=== PATIENT | female | born 1985 | race Caucasian/White ===

== ENCOUNTER 2017-04-29 08:47 | Inpatient (IN) | payer OTHER ==
[~2017-04-29] VITALS: Ht 172.7 cm; Wt 99.1 kg
[~2017-04-29 08:47] MED LIST: FERR325T18 PO; IBUP-1222 PO; OXYC-302 PO
[2017-05-01] MEDS: AMPICILLIN 2 GM in SODIUM CHLORIDE 0.9% 100 ML IVPB STA ×2 (06:02→07:00)
[2017-05-01] MEDS ORDERED: OXYTOCIN 30U/ 0.9% NaCL 500ML 500 ML IV PRN (06:02)
[2017-05-01] MEDS ORDERED: OXYTOCIN 30U/ 0.9% NaCL 500ML 500 ML IV ONE (06:02)
[2017-05-01] MEDS ORDERED: OXYTOCIN 30U/ 0.9% NaCL 500ML 500 ML ONE ×2 (06:24→12:41)
[2017-05-01 06:27] VITALS: BP 137/88
[2017-05-01] MEDS ORDERED: FENTANYL PF 100 MCG/2ML IV PRN (06:30)
[2017-05-01] MEDS ORDERED: TERBUTALINE 1 MG/ML, 1ML IVPush PRN (06:30)
[2017-05-01] MEDS ORDERED: ONDANSETRON 2MG/ML, 2ML IVPush PRN (06:30)
[2017-05-01] MEDS ORDERED: FENTANYL PF 100 MCG/2ML IVPush PRN (06:30)
[2017-05-01] MEDS ORDERED: ALUMINUM/MAG/SIMETHICONE 30 ML UDC PO PRN (06:30)
[2017-05-01] MEDS: LACTATED RINGERS 1,000 ML IV SCH ×2 (06:52→10:37)
[2017-05-01 06:59] LABS: HEMATOCRIT 38.4 % (34.6-47.8)
[2017-05-01] MEDS ORDERED: PREN-3 PO (07:01)
[2017-05-01] MEDS ORDERED: NEWBORN KIT ONE (07:21)
[2017-05-01] MEDS: AMPICILLIN 1 GM in SODIUM CHLORIDE 0.9% 50 ML IVPB SCH ×2 (10:30→11:15)
[2017-05-01] MEDS ORDERED: FENTANYL/BUPIV./NS/PF 250 ML EPIDCONT ONE ×2 (10:46→10:48)
[2017-05-01] MEDS ORDERED: LIDOCAINE/MPF 2%-EPI 1:200K, 20 ML ONE (10:47)
[2017-05-01] MEDS ORDERED: LIDOCAINE 1%, 20ML ONE (10:48)
[2017-05-01] MEDS ORDERED: LIDOCAINE/PF 1.5%-EPI 1:200K, 30ML ONE (10:48)
[2017-05-01] MEDS ORDERED: MISOPROSTOL 200 MCG TABLET ONE (11:56)
[2017-05-01] MEDS ORDERED: FENTANYL PF 100 MCG/2ML ONE (12:05)
[2017-05-01] MEDS ORDERED: MISOPROSTOL 200 MCG TABLET PR ONE (12:30)
[2017-05-01] MEDS: OXYTOCIN 30U/ 0.9% NaCL 500ML 500 ML IV SCH ×2 (12:31→22:31)
[2017-05-01] MEDS ORDERED: HYDROcodone/APAP 5/325 TABLET PO PRN (13:00)
[2017-05-01] MEDS ORDERED: METHYLERGONOVINE 0.2 MG/ML IM PRN (13:00)
[2017-05-01] MEDS ORDERED: OXYTOCIN 10 UNITS/ML, 1ML IM PRN (13:00)
[2017-05-01] MEDS ORDERED: ONDANSETRON 2MG/ML, 2ML IV PRN (13:00)
[2017-05-01] MEDS ORDERED: CARBOPROST TROMETHAMINE 250 MCG/ML, 1ML IM PRN (13:00)
[2017-05-01] MEDS ORDERED: ACETAMINOPHEN 325 MG TABLET PO PRN ×2 (13:00)
[2017-05-01] MEDS ORDERED: MISOPROSTOL 200 MCG TABLET PR PRN (13:00)
[2017-05-01] MEDS: CEFAZOLIN PMX 2GM/50ML 50 ML IVPB SCH ×2 (13:26→21:28)
[2017-05-01 14:05] VITALS: BP 116/72
[2017-05-01] MEDS: IBUPROFEN 600 MG TABLET PO PRN (16:43)
[2017-05-01] MEDS ORDERED: FENTANYL/BUPIV./NS/PF 250 ML EPIDCONT SCH (18:08)
[2017-05-01] MEDS ORDERED: LACTATED RINGERS 1,000 ML IV SCH (18:08)
[2017-05-01 18:09] VITALS: BP 119/76
[2017-05-01] MEDS ORDERED: LACTATED RINGERS 1,000 ML IVBOLUS PRN (18:30)
[2017-05-01] MEDS ORDERED: EPHEDRINE 50 MG/ML, 1ML IVPush PRN (18:30)
[2017-05-01] MEDS ORDERED: NALOXONE 0.4 MG/ML, 1ML IVPush PRN (18:30)
[2017-05-01 20:01] LABS: DIFF TOTAL CELLS COUNTED 100 CELL DIFF; HEMATOCRIT 35.9 % (34.6-47.8); HEMOGLOBIN 12.1 g/dL (11.7-16.4)
[2017-05-01 20:45] LABS: VERIFY COUNTS? YES
[2017-05-01 21:00] VITALS: BP 122/80
[2017-05-02 01:15] VITALS: BP 118/69
[2017-05-02] MEDS: CEFAZOLIN PMX 2GM/50ML 50 ML IVPB SCH ×2 (05:44→13:22)
[2017-05-02] MEDS ORDERED: MEASLES,MUMPS&RUBELLA VACC/PF 0.5 ML SQ-VACC ONE (06:00)
[2017-05-02] MEDS ORDERED: PRENATAL VIT/IRON/FA 1 EACH TABLET ONE (07:40)
[2017-05-02] MEDS: DOCUSATE 100 MG CAPSULE PO PRN (07:48)
[2017-05-02] MEDS: PRENATAL VIT/IRON/FA 1 EACH TABLET PO SCH (07:48)
[2017-05-02 08:00] VITALS: BP 122/79
[2017-05-02] MEDS: OXYTOCIN 30U/ 0.9% NaCL 500ML 500 ML IV SCH (08:31)
[2017-05-02 19:35] VITALS: BP 130/71
[2017-05-02] MEDS: IBUPROFEN 600 MG TABLET PO PRN (19:48)
[2017-05-03] MEDS: IBUPROFEN 600 MG TABLET PO PRN (05:37)
[2017-05-03] MEDS: PRENATAL VIT/IRON/FA 1 EACH TABLET PO SCH (09:00)
[2017-05-03] MEDS: DOCUSATE 100 MG CAPSULE PO PRN (09:00)
[2017-05-03] MEDS ORDERED: OXYC-302 PO (09:27)
[2017-05-03] MEDS ORDERED: IBUP-1222 PO (09:27)
== END 2017-05-03 10:57 | disposition home or self-care (01) | DRG 767 ==
LOC: LDIP 05-01 05:58 → 2NW 05-01 13:58
PROVIDERS: ADMIT Obstetrics & Gynecology; ATTEND Obstetrics & Gynecology
PROC: 10E0XZZ Delivery of Products of Conception, External Approach (ICD-10-PCS; principal; 2017-05-01)
PROC: 0KQM0ZZ Repair Perineum Muscle, Open Approach (ICD-10-PCS; 2017-05-01)
PROC: 10907ZC Drainage of Amniotic Fluid, Therapeutic from Products of Conception, Via Natural or Artificial Opening (ICD-10-PCS; 2017-05-01)
PROC: 3E0R3BZ Introduction of Anesthetic Agent into Spinal Canal, Percutaneous Approach (ICD-10-PCS; 2017-05-01)
PROC: 00HU33Z Insertion of Infusion Device into Spinal Canal, Percutaneous Approach (ICD-10-PCS; 2017-05-01)
PROC: 10D17Z9 Manual Extraction of Products of Conception, Retained, Via Natural or Artificial Opening (ICD-10-PCS; 2017-05-01)
PROC: 10E0XZZ Delivery of Products of Conception, External Approach (ICD-10-PCS; 2017-05-01)
DX: O99.824 Streptococcus B carrier state complicating childbirth (principal); F41.9 Anxiety disorder, unspecified; O99.344 Other mental disorders complicating childbirth; J45.909 Unspecified asthma, uncomplicated; O99.52 Diseases of the respiratory system complicating childbirth; O70.1 Second degree perineal laceration during delivery; Z37.0 Single live birth; Z3A.40 40 weeks gestation of pregnancy; Z87.820 Personal history of traumatic brain injury; Z23 Encounter for immunization; O73.0 Retained placenta without hemorrhage
CPT/HCPCS: 36415; 82803; 85025; 86592; 86850; 86900; 88305; J0290; J0690; J3010; J3490; J2590; J7120

== ENCOUNTER 2017-12-23 13:08 | Inpatient (IN) | payer OTHER ==
[~2017-12-23] VITALS: Ht 172.7 cm; Wt 89.4 kg
[~2017-12-23 13:08] MED LIST changes: +PREN-3 PO
[2017-12-23] MEDS ORDERED: ASPIRIN 325 MG TABLET PO STA (13:22)
[2017-12-23] MEDS ORDERED: SODIUM CHLORIDE FLUSH 10ML SYR IVF ONE (13:30)
[2017-12-23 13:34] LABS: BASOPHILS # (AUTO) 0.05 x10^3/uL (0-0.1); BASOPHILS % (AUTO) 0 % (0-1); EOSINOPHILS # (AUTO) 0.12 x10^3/uL (0-0.4); EOSINOPHILS % (AUTO) 1 % (1-7); LYMPHOCYTES # (AUTO) 2.34 x10^3/uL (1-3.4); LYMPHOCYTES % (AUTO) 17 % (22-44); MD NO; MEAN CORPUSCULAR HEMOGLOBIN 29.8 pg (27.0-34.8); MEAN CORPUSCULAR HGB CONC 34.4 g/dL (32.4-35.8); MEAN CORPUSCULAR VOLUME 86.5 fL (80-100); MEAN PLATELET VOLUME 9.8 fL (7.4-10.4); MONOCYTES # (AUTO) 0.72 x10^3/uL (0.2-0.8); MONOCYTES % (AUTO) 5 % (2-9); NEUTROPHILS # (AUTO) 10.89 x10^3/uL (1.8-6.8); NEUTROPHILS % (AUTO) 77 % (42-75); PLATELET COUNT 283 x10^3/uL (130-400); RED BLOOD COUNT 5.08 x10^6/uL (3.82-5.3); RED CELL DISTRIBUTION WIDTH 14.1 % (9.6-15.2)
[2017-12-23] MEDS ORDERED: LORazepam 2 MG/ML, 1ML ONE (13:40)
[2017-12-23 13:49] LABS: INTERNATIONAL NORMALIZED RATIO 0.98 (0.93-1.1); PROTHROMBIN TIME 10.2 Seconds (9.6-11.5)
[2017-12-23] MEDS ORDERED: NITROGLYCERIN 5 MG/ML, 10ML ONE (13:50)
[2017-12-23] MEDS ORDERED: TICAGRELOR 90 MG TABLET ONE (13:50)
[2017-12-23] MEDS ORDERED: FENTANYL PF 100 MCG/2ML ONE ×2 (13:50→15:28)
[2017-12-23] MEDS ORDERED: MIDAZOLAM 1 MG/ML, 5ML ONE (13:50)
[2017-12-23] MEDS ORDERED: VERAPAMIL 2.5 MG/ML, 2ML ONE ×2 (13:50→14:23)
[2017-12-23 13:51] LABS: TROPONIN I 0.022 ng/mL (0.000-0.045)
[2017-12-23] MEDS ORDERED: BIVALIRUDIN 250 MG ONE ×2 (13:51→15:31)
[2017-12-23] MEDS ORDERED: HEPARIN 1,000 UNITS/ML, 10ML ONE (13:51)
[2017-12-23] MEDS ORDERED: LIDOCAINE/PF 1%, 30ML ONE (13:51)
[2017-12-23] MEDS ORDERED: ASPIRIN 81 MG TABLET CHEW ONE (13:55)
[2017-12-23] MEDS ORDERED: LORazepam 2 MG/ML, 1ML IVPush ONE (14:00)
[2017-12-23] MEDS ORDERED: NITROGLYCERIN SINGLE TAB 0.4 MG SL PRN (14:00)
[2017-12-23 14:22] LABS: HCT (SEDRATE) 43.9 % (34.6-47.8)
[2017-12-23] MEDS ORDERED: ACETAMINOPHEN 325 MG TABLET PO PRN (15:00)
[2017-12-23] MEDS ORDERED: SODIUM CHLORIDE 0.9% 1,000 ML IV SCH (15:00)
[2017-12-23] MEDS ORDERED: ONDANSETRON 2MG/ML, 2ML IVPush PRN (15:00)
[2017-12-23] MEDS ORDERED: ZOLPIDEM 5MG TABLET PO PRN (15:00)
[2017-12-23] MEDS ORDERED: ENOXAPARIN 40 MG/0.4 ML SQ SCH (15:00)
[2017-12-23] MEDS ORDERED: BISACODYL 5 MG EC TABLET PO PRN ×2 (15:00→18:30)
[2017-12-23] MEDS ORDERED: BISACODYL 10 MG SUPP PR PRN ×2 (15:00→18:30)
[2017-12-23] MEDS ORDERED: NITROGLYCERIN 0.4 MG/SPRAY SL PRN (15:00)
[2017-12-23] MEDS ORDERED: ADENOSINE 6 MG/2 ML ONE (15:25)
[2017-12-23] MEDS ORDERED: MIDAZOLAM 1 MG/ML, 2ML ONE (15:28)
[2017-12-23] MEDS ORDERED: EPTIFIBATIDE 20 MG/10 ML ONE ×2 (15:36→16:52)
[2017-12-23] MEDS ORDERED: EPTIFIBATIDE 100 ML IV ONE (16:47)
[2017-12-23] MEDS ORDERED: EPTIFIBATIDE IVPush ONE (17:30)
[2017-12-23] MEDS: EPTIFIBATIDE 100 ML IV PRN ×2 (17:35→22:15)
[2017-12-23] MEDS ORDERED: EPTIFIBATIDE 100 ML IV PRN (18:15)
[2017-12-23] MEDS: ACETAMINOPHEN 325 MG TABLET PO PRN (18:22)
[2017-12-23] MEDS: SODIUM CHLORIDE 0.9% 1,000 ML IV SCH ×2 (18:29→18:30)
[2017-12-23] MEDS ORDERED: ONDANSETRON 2MG/ML, 2ML IV PRN (18:30)
[2017-12-23] MEDS ORDERED: KETOROLAC 30 MG/1 ML IVPush ONE (20:30)
[2017-12-23] MEDS ORDERED: MAGNESIUM SULFATE PMX 2GM/50ML 50 ML IV ONE (20:30)
[2017-12-23] MEDS: ATORVASTATIN 80 MG TABLET PO SCH (20:40)
[2017-12-23] MEDS: METOPROLOL TARTRATE 25 MG TABLET PO SCH (20:40)
[2017-12-23] MEDS ORDERED: TICAGRELOR 90 MG TABLET PO SCH (21:00)
[2017-12-23] MEDS ORDERED: METOPROLOL TARTRATE 25 MG TABLET PO SCH (21:00)
[2017-12-23 21:05] LABS: ANION GAP 11 mmol/L (5-15); CALCIUM 8.7 mg/dL (8.5-10.1); CHLORIDE 105 mmol/L (98-107); CREATININE 0.71 mg/dL (0.55-1.02)
[2017-12-23] MEDS: NITROGLYCERIN 0.4 MG BOTTLE (25 TABS) SL PRN (21:29)
[2017-12-23] MEDS ORDERED: POTASSIUM CHLORIDE 20 MEQ TAB.ER.PRT PO ONE (22:00)
[2017-12-23] MEDS ORDERED: NITROGLYCERIN/D5W PMX 250 ML IV PRN (22:30)
[2017-12-24] MEDS: METOPROLOL TARTRATE 25 MG TABLET PO SCH ×4 (02:48→20:50)
[2017-12-24] MEDS: NITROGLYCERIN 0.4 MG BOTTLE (25 TABS) SL PRN ×2 (05:23→06:45)
[2017-12-24 05:38] LABS: BASOPHILS # (AUTO) 0.03 x10^3/uL (0-0.1); BASOPHILS % (AUTO) 0 % (0-1); EOSINOPHILS # (AUTO) 0.01 x10^3/uL (0-0.4); EOSINOPHILS % (AUTO) 0 % (1-7); LYMPHOCYTES % (AUTO) 10 % (22-44); MD NO; MEAN CORPUSCULAR HEMOGLOBIN 29.4 pg (27.0-34.8); MEAN CORPUSCULAR HGB CONC 33.6 g/dL (32.4-35.8); MEAN CORPUSCULAR VOLUME 87.6 fL (80-100); MEAN PLATELET VOLUME 10.7 fL (7.4-10.4); MONOCYTES # (AUTO) 0.84 x10^3/uL (0.2-0.8); MONOCYTES % (AUTO) 7 % (2-9); NEUTROPHILS # (AUTO) 10.28 x10^3/uL (1.8-6.8); NEUTROPHILS % (AUTO) 83 % (42-75); PLATELET COUNT 244 x10^3/uL (130-400); RED BLOOD COUNT 4.87 x10^6/uL (3.82-5.3); RED CELL DISTRIBUTION WIDTH 14.2 % (9.6-15.2)
[2017-12-24 05:39] LABS: LDL/HDL RATIO 1.7 (0.5-3.0)
[2017-12-24 05:56] LABS: ALBUMIN 3.5 g/dL (3.4-5.0); ANION GAP 10 mmol/L (5-15); CALCIUM 8.4 mg/dL (8.5-10.1); CHLORIDE 106 mmol/L (98-107); CREATININE 0.57 mg/dL (0.55-1.02)
[2017-12-24] MEDS: ASPIRIN 81 MG TABLET EC PO SCH (06:13)
[2017-12-24] MEDS ORDERED: FENTANYL PF 100 MCG/2ML ONE (07:29)
[2017-12-24] MEDS ORDERED: NITROGLYCERIN 5 MG/ML, 10ML ONE (07:29)
[2017-12-24] MEDS ORDERED: VERAPAMIL 2.5 MG/ML, 2ML ONE (07:29)
[2017-12-24] MEDS ORDERED: MIDAZOLAM 1 MG/ML, 5ML ONE (07:29)
[2017-12-24] MEDS ORDERED: BIVALIRUDIN 250 MG ONE (07:29)
[2017-12-24] MEDS ORDERED: TICAGRELOR 90 MG TABLET ONE (07:29)
[2017-12-24] MEDS ORDERED: LIDOCAINE/PF 1%, 30ML ONE (07:30)
[2017-12-24] MEDS ORDERED: LIDOCAINE-MPF 2% ,5ML ONE ×2 (07:30→07:35)
[2017-12-24] MEDS ORDERED: HEPARIN 1,000 UNITS/ML, 10ML ONE (07:30)
[2017-12-24] MEDS: SODIUM CHLORIDE 0.9% 1,000 ML IV SCH ×5 (07:50→21:10)
[2017-12-24] MEDS ORDERED: EPTIFIBATIDE 20 MG/10 ML ONE ×2 (07:51→07:52)
[2017-12-24] MEDS ORDERED: EPTIFIBATIDE 100 ML IV ONE (07:53)
[2017-12-24] MEDS: TICAGRELOR 90 MG TABLET PO SCH ×2 (09:00→20:47)
[2017-12-24] MEDS ORDERED: ASPIRIN 325 MG TABLET EC PO SCH (09:00)
[2017-12-24] MEDS ORDERED: ASPIRIN 81 MG TABLET EC PO SCH (09:00)
[2017-12-24] MEDS: EPTIFIBATIDE 100 ML IV SCH ×2 (10:26→18:21)
[2017-12-24] MEDS: RAMIPRIL 2.5 MG CAPSULE PO SCH (10:26)
[2017-12-24] MEDS: ACETAMINOPHEN 325 MG TABLET PO PRN (13:26)
[2017-12-24] MEDS ORDERED: HYDROcodone/APAP 5/325 TABLET PO PRN (15:30)
[2017-12-24] MEDS: morphine SULFATE 10 MG/ML, 1ML IVPush PRN ×2 (16:29→23:17)
[2017-12-24] MEDS: ATORVASTATIN 80 MG TABLET PO SCH (20:47)
[2017-12-25] MEDS: SODIUM CHLORIDE 0.9% 1,000 ML IV SCH ×3 (01:34→08:56)
[2017-12-25] MEDS: METOPROLOL TARTRATE 25 MG TABLET PO SCH ×4 (02:53→20:24)
[2017-12-25 04:46] LABS: ALBUMIN 3.3 g/dL (3.4-5.0); ANION GAP 8 mmol/L (5-15); CALCIUM 8.4 mg/dL (8.5-10.1); CHLORIDE 103 mmol/L (98-107); CREATININE 0.82 mg/dL (0.55-1.02)
[2017-12-25] MEDS: ASPIRIN 81 MG TABLET EC PO SCH (05:59)
[2017-12-25] MEDS: RAMIPRIL 2.5 MG CAPSULE PO SCH (07:24)
[2017-12-25] MEDS: TICAGRELOR 90 MG TABLET PO SCH ×2 (07:24→20:24)
[2017-12-25] MEDS ORDERED: morphine SULFATE 10 MG/ML, 1ML IVPush PRN (10:30)
[2017-12-25 11:15] VITALS: BP 104/68
[2017-12-25] MEDS ORDERED: MORPHINE SULFATE 4 MG/ML, 1ML ONE (13:33)
[2017-12-25 15:30] VITALS: BP 103/61
[2017-12-25] MEDS ORDERED: KETOROLAC 30 MG/1 ML IVPush SCH (16:00)
[2017-12-25 19:10] VITALS: BP 102/65
[2017-12-25] MEDS: KETOROLAC 30 MG/1 ML IVPush PRN (20:21)
[2017-12-25] MEDS: ATORVASTATIN 80 MG TABLET PO SCH (20:23)
[2017-12-25] MEDS: ZOLPIDEM 5MG TABLET PO PRN (21:54)
[2017-12-26] MEDS: METOPROLOL TARTRATE 25 MG TABLET PO SCH ×4 (03:22→19:44)
[2017-12-26] MEDS: KETOROLAC 30 MG/1 ML IVPush PRN ×3 (03:26→18:49)
[2017-12-26 03:37] VITALS: BP 102/86
[2017-12-26 07:37] VITALS: BP 92/62
[2017-12-26] MEDS: RAMIPRIL 2.5 MG CAPSULE PO SCH (07:54)
[2017-12-26] MEDS: ASPIRIN 81 MG TABLET EC PO SCH (09:29)
[2017-12-26] MEDS: TICAGRELOR 90 MG TABLET PO SCH ×2 (09:29→19:51)
[2017-12-26 14:01] VITALS: BP 101/69
[2017-12-26 19:04] VITALS: BP 93/60
[2017-12-26] MEDS: ATORVASTATIN 80 MG TABLET PO SCH (19:51)
[2017-12-26] MEDS: ZOLPIDEM 5MG TABLET PO PRN (21:21)
[2017-12-26 21:23] VITALS: BP 101/62
[2017-12-27 02:50] VITALS: BP 98/62
[2017-12-27] MEDS: METOPROLOL TARTRATE 25 MG TABLET PO SCH ×2 (03:00→08:47)
[2017-12-27] MEDS: ASPIRIN 81 MG TABLET EC PO SCH (06:07)
[2017-12-27 08:44] VITALS: BP 101/67
[2017-12-27] MEDS: TICAGRELOR 90 MG TABLET PO SCH (08:46)
[2017-12-27] MEDS: RAMIPRIL 2.5 MG CAPSULE PO SCH (08:48)
[2017-12-27] MEDS ORDERED: IBUP-1222 PO (10:11)
[2017-12-27] MEDS ORDERED: METO25TA35 PO (10:11)
[2017-12-27] MEDS ORDERED: ATOR-2 PO (10:11)
[2017-12-27] MEDS ORDERED: ASPI-621 PO (10:11)
[2017-12-27] MEDS ORDERED: TICA90TA PO (10:11)
[2017-12-27] MEDS ORDERED: RAMI2.5C PO (10:11)
[2017-12-27] MEDS ORDERED: NITR0.4T SL (10:12)
== END 2017-12-27 14:10 | disposition home or self-care (01) | DRG 246 ==
LOC: ED 13:29 → EDIP 14:07 → CCU 14:49 → 5SO 12-25 11:20 → DCLOUNGE 12-27 13:35
PROVIDERS: ADMIT Internal Medicine Cardiovascular Disease; ATTEND Internal Medicine Cardiovascular Disease
PROC: 027035Z Dilation of Coronary Artery, One Artery with Two Drug-eluting Intraluminal Devices, Percutaneous Approach (ICD-10-PCS; 2017-12-23)
PROC: 4A023N7 Measurement of Cardiac Sampling and Pressure, Left Heart, Percutaneous Approach (ICD-10-PCS; 2017-12-23)
PROC: B2111ZZ Fluoroscopy of Multiple Coronary Arteries using Low Osmolar Contrast (ICD-10-PCS; 2017-12-23)
PROC: 027036Z Dilation of Coronary Artery, One Artery with Three Drug-eluting Intraluminal Devices, Percutaneous Approach (ICD-10-PCS; principal; 2017-12-24)
PROC: 4A023N7 Measurement of Cardiac Sampling and Pressure, Left Heart, Percutaneous Approach (ICD-10-PCS; 2017-12-24)
PROC: B2101ZZ Fluoroscopy of Single Coronary Artery using Low Osmolar Contrast (ICD-10-PCS; 2017-12-24)
DX: I21.19 ST elevation (STEMI) myocardial infarction involving other coronary artery of inferior wall (principal); I24.1 Dressler's syndrome; E78.5 Hyperlipidemia, unspecified; I25.5 Ischemic cardiomyopathy; I25.10 Atherosclerotic heart disease of native coronary artery without angina pectoris; Z79.82 Long term (current) use of aspirin; Z87.891 Personal history of nicotine dependence; Z87.01 Personal history of pneumonia (recurrent)
CPT/HCPCS: 36415; 92978; 93454; 99291; C9600; 71045; 71046; 80047; 80048; 80061; 82040; 83735; 84484; 84703; 85025; 85610; 85651; 85730; 86140; 87081; 93005; 93306; 93880; 99156; 99157; C1753; C1760; C1769; C1894; J0153; J0583; J1644; J1885; J2250; J3010; J3490; C1725; C1757; C1874; C1887; J1327; J2060; J2270; J3475; J7030; Q9967

== ENCOUNTER → 2018-09-03 | Outpatient (CLI) | payer OTHER ==
[~2018-09-03] MED LIST changes: +ASPI81TA45 PO; +ATOR-2 PO; +METO25TA35 PO; +NITR0.4T SL; +OMNIPAQUE 350 MG/ML, 100ML BOTTLE ONE; +RAMI2.5C2 PO; +TICA90TA PO
== END | disposition home or self-care (01) ==
LOC: CVU 06:38
PROVIDERS: ATTEND Internal Medicine Cardiovascular Disease
DX: I72.2 Aneurysm of renal artery (principal); I77.3 Arterial fibromuscular dysplasia; I21.02 ST elevation (STEMI) myocardial infarction involving left anterior descending coronary artery; I25.42 Coronary artery dissection
CPT/HCPCS: 74174; 93880; 93975; Q9967

== ENCOUNTER → 2020-10-07 | Outpatient (CLI) | payer OTHER ==
[~2020-10-07] MED LIST changes: -NITR0.4T SL; +NITR0.4T41 SL; -OMNIPAQUE 350 MG/ML, 100ML BOTTLE ONE; -OXYC-302 PO; +OXYC1TAB14 PO; -RAMI2.5C2 PO; +RAMI2.5C49 PO
== END | disposition home or self-care (01) ==
LOC: CVU 10:49
PROVIDERS: ATTEND Internal Medicine Cardiovascular Disease
DX: I21.09 ST elevation (STEMI) myocardial infarction involving other coronary artery of anterior wall (principal); I72.2 Aneurysm of renal artery; I42.9 Cardiomyopathy, unspecified
CPT/HCPCS: 78452; 93017; 93975; A9502